=== PATIENT | female | born 1970 | race Caucasian/White ===

== ENCOUNTER 2020-07-08 07:23 | Emergency (ER) | payer OTHER ==
[2020-07-08] MEDS ORDERED: Boostrix 0.5 ML (Tdap) VIAL ONE (07:48)
== END 2020-07-08 08:15 | disposition home or self-care (01) ==
LOC: ERS 07:23
DX: S61.552A Open bite of left wrist, initial encounter (principal); W55.01XA Bitten by cat, initial encounter
CPT/HCPCS: 90471; 90715

== ENCOUNTER 2021-10-20 10:03 | Outpatient (CLI) | payer BC | END 2021-10-20 10:04 | disposition home or self-care (01) | LOC: DTY/OP 10:03 | PROVIDERS: ATTEND Internal Medicine | DX: E66.01 Morbid (severe) obesity due to excess calories (principal) | CPT/HCPCS: 97802 ==

== ENCOUNTER 2021-12-19 14:09 | Outpatient (CLI) | payer BC | END 2021-12-19 14:10 | disposition home or self-care (01) | LOC: BICRAD 14:09 | PROVIDERS: ATTEND Internal Medicine Rheumatology | DX: M46.1 Sacroiliitis, not elsewhere classified (principal); M47.818 Spondylosis without myelopathy or radiculopathy, sacral and sacrococcygeal region | CPT/HCPCS: 72202 ==